=== PATIENT | female | born 1960 | race African-American/Black ===

== ENCOUNTER 2019-02-19 18:17 | Emergency (ER) | payer OTHER ==
[~2019-02-19] VITALS: Ht 170.2 cm; Wt 54.4 kg
[~2019-02-19 18:17] MED LIST: DOCU-150 PO; DOXY100T PO; OXYC1TAB15 PO
[2019-02-19 18:43] VITALS: BP 154/77
--- NOTE | 2019-02-19 18:47 | PHYS DOC ---
Past Medical History Past Medical History: No Pertinent History Past Surgical History: Hysterectomy Alcohol Use: Occasionally Drug Use: None Adult General Chief Complaint Chief Complaint: FOOT INJURY PAIN HPI HPI Patient is a 59 year old female who presents with right foot pain. Patient states that she was walking out of yarsani this morning when she stepped down her foot started having shooting pain. She has been unable to walk or put any weight on her foot since this happened. She denies any numbness or tingling in the foot. Nothing has made the pain better. Pain is worsened by movement, palpation, walking. Review of Systems Review of Systems Constitutional: Denies fever or chills Eyes: Denies vision changes or eye pain HENT: Denies nasal congestion or sore throat Respiratory: Denies cough or shortness of breath Cardiovascular: Denies chest pain or palpitations. GI: Denies abdominal pain, nausea, vomiting : Denies dysuria or hematuria Musculoskeletal: Reports right foot pain. Denies right knee pain. Integument: Denies rash or skin lesions Neurologic: Denies headache or focal weakness Complete systems were reviewed and found to be within normal limits, except as documented in this note. Current Medications Current Medications Current Medications Medications (Trade) Dose Ordered Sig/Zeny Start Time Stop Time Status Last Admin Dose Admin Ibuprofen (Motrin) 400 mg 1X ONCE 02/19/19 19:00 02/19/19 19:01 DC 02/19/19 18:50 400 MG Allergies Allergies Allergies Coded Allergies Type Severity Reaction Last Updated Verified No Known Drug Allergies 04/09/15 No Physical Exam Physical Exam Constitutional: Well developed, well nourished HENT: Normocephalic, atraumatic. Eyes: EOMI, conjunctiva normal. Neck: Normal range of motion, supple. Cardiovascular:Heart rate regular rhythm, no murmur Lungs & Thorax: Bilateral breath sounds clear to auscultation Abdomen: Bowel sounds normal, soft, no tenderness. Skin: Warm, dry, no erythema, no rash. Back: No tenderness, no CVA tenderness. Extremities: Right mixing pan tender to palpation, right foot swelling, decreased range of motion in right foot. Neurologic: Alert and oriented X 3, no focal deficits noted. Psychologic: Affect normal, mood normal. Current Patient Data Vital Signs Vital Signs Date Time Temp Pulse Resp B/P (MAP) Pulse Ox O2 Delivery O2 Flow Rate FiO2 02/19/19 18:43 99.3 75 20 154/77 (102) 98 Room Air 99.3 EKG EKG [] Radiology/Procedures Radiology/Procedures Foot X-ray: Preliminary read by ER physician showed no acute fracture Course & Med Decision Making Course & Med Decision Making 59 year old female presented to the emergency department for right foot pain. Patient injured her foot walking down the stairs outside of her yarsani. She denies rolling her ankle. Imaging obtained and posted to the chart. Sym ptomatic treatment provided with interval improvement. X-ray were negative for a fracture. Provided patient with lalitha wrap, postop shoe, and crutches. Patient is stable for discharge at this time and can follow up with PCP. Discussed findings with patient who acknowledges understanding and agree with the plan. [] Dragon Disclaimer Dragon Disclaimer This electronic medical record was generated, in whole or in part, using a voice recognition dictation system. Departure Departure Impression: Primary Impression: Foot sprain Disposition: HOME, SELF-CARE Condition: STABLE Referrals: ODILON FAJARDO MD (PCP) GALA TRUJILLO MD Patient Instructions: Crutch Use, [id number], Foot Sprain-Brief Scripts Hydrocodone/Apap 5-325 (NORCO 5-325 TABLET) 1 Each Tablet 1 TAB PO PRN Q6HRS PRN for PAIN, #8 TAB 0 Refills Prov: TALI QUICK DO 02/19/19 Problem Qualifiers Primary Impression: Foot sprain Encounter type: initial encounter Laterality: right Qualified Codes: S93.601A - Unspecified sprain of right foot, initial encounter TALI QUICK DO Feb 19, 2019 18:47
[2019-02-19] MEDS ORDERED: IBUPROFEN 400 MG TABLET. PO ONE (19:00)
[2019-02-19] MEDS ORDERED: HYDR-3164 PO (19:11)
--- NOTE | 2019-02-20 08:20 | RAD ---
Right foot, 3 views, 02/19/2019: HISTORY: Sudden pain No fracture or dislocation is identified. There are minimal degenerative changes at scattered interphalangeal joints and the first MTP joint. There is mild subcutaneous edema. IMPRESSION: No acute bony abnormality is detected. Electronically signed by: Mook Vivas MD (02/20/2019 8:17 AM) [facility]
== END 2019-02-19 19:22 | disposition home or self-care (01) ==
LOC: ER 18:17
DX: S93.691A Other sprain of right foot, initial encounter (principal); Z90.710 Acquired absence of both cervix and uterus; X50.1XXA Overexertion from prolonged static or awkward postures, initial encounter; Y93.01 Activity, walking, marching and hiking; Y92.22 Religious institution as the place of occurrence of the external cause; Y99.8 Other external cause status
CPT/HCPCS: 73630; 99284

== ENCOUNTER 2020-01-24 13:42 | Emergency (ER) | payer OTHER ==
[~2020-01-24] VITALS: Ht 170.2 cm; Wt 58.1 kg
[~2020-01-24 13:42] MED LIST changes: +HYDR-3164 PO
[2020-01-24 14:02] VITALS: BP 162/81
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
== END 2020-01-24 14:40 | disposition home or self-care (01) ==
LOC: ER 13:42
DX: S29.012A Strain of muscle and tendon of back wall of thorax, initial encounter (principal); Z88.5 Allergy status to narcotic agent; V49.88XA Car occupant (driver) (passenger) injured in other specified transport accidents, initial encounter; Y92.488 Other paved roadways as the place of occurrence of the external cause; Y93.89 Activity, other specified; Y99.9 Unspecified external cause status; F17.200 Nicotine dependence, unspecified, uncomplicated
CPT/HCPCS: 99281